=== PATIENT | male | born 1985 | race Native Hawaiian/Other Pacific Islander ===

== ENCOUNTER 2018-04-21 10:41 | Emergency (ER) | payer BC ==
[~2018-04-21] VITALS: Ht 172.7 cm; Wt 77.1 kg
[2018-04-21 10:50] VITALS: TEMP 98.2
[2018-04-21 11:25] VITALS: BP 123/82
== END 2018-04-21 11:31 | disposition home or self-care (01) ==
LOC: ED 10:41
PROC: 0HQGXZZ Repair Left Hand Skin, External Approach (ICD-10-PCS; principal; 2018-04-21)
DX: S61.211A Laceration without foreign body of left index finger without damage to nail, initial encounter (principal); W26.0XXA Contact with knife, initial encounter
CPT/HCPCS: 90471; 90715; 99283